=== PATIENT | male | born 1980 | race Caucasian/White ===

== ENCOUNTER 2017-08-16 16:38 | Emergency (ER) | payer OTHER ==
[~2017-08-16] VITALS: Ht 172.7 cm; Wt 87.5 kg
[2017-08-16] VITALS (8 sets, daily range): BP systolic 136–151; BP diastolic 80–96; PULSE 45–65; RESP 16–18; TEMP 98; O2SAT 98–99
[~2017-08-16 16:38] MED LIST: ASPI81 PO; ATOR20TA42 PO; CARV12.5 PO; LEVO.025 PO; LISI20 PO; NITR.4 SL; PRAS10 PO; TRAM50 PO
[2017-08-16] MEDS ORDERED: SODIUM CHLORIDE 0.9% FLUSH 10 ML FLUSH IVF PRN (17:15)
[2017-08-16] MEDS ORDERED: LISI10TA3 PO (17:26)
[2017-08-16] MEDS ORDERED: ASPI-516 CHEW (17:26)
[2017-08-16] MEDS ORDERED: ATOR40TA16 PO (17:26)
[2017-08-16 17:29] LABS: BASOPHIL % 0.4 % (0.0-2.0); EOSINOPHIL # 0.1 TH/MM3 (0-0.4); EOSINOPHIL % 1.1 % (0.0-4.0); HEMATOCRIT 42.4 % (39.0-51.0); HEMOGLOBIN 14.4 GM/DL (13.0-17.0); LYMPH % 23.4 % (9.0-44.0); MEAN CELL VOLUME 91.9 FL (80.0-100.0); MEAN CORPUSCULAR HEMOGLOBIN 31.3 PG (27.0-34.0); MEAN PLATELET VOLUME 9.4 FL (7.0-11.0); MONO % 6.8 % (0.0-8.0); MONOCYTE # 0.6 TH/MM3 (0-0.9); NEUT % 68.3 % (16.0-70.0); PLATELET COUNT 207 TH/MM3 (150-450); RED BLOOD COUNT 4.61 MIL/MM3 (4.50-5.90); RED CELL DISTRIBUTION WIDTH 13.1 % (11.6-17.2); WHITE BLOOD COUNT 8.7 TH/MM3 (4.0-11.0)
[2017-08-16 17:31] LABS: CHLORIDE 110 MEQ/L (98-107); SODIUM (NA) 140 MEQ/L (136-145)
[2017-08-16 17:36] LABS: BICARBONATE 21.1 MEQ/L (21.0-32.0); BLOOD UREA NITROGEN 19 MG/DL (7-18); CALCIUM 8.4 MG/DL (8.5-10.1); GLUCOSE,RANDOM 92 MG/DL (74-106)
[2017-08-16 17:39] LABS: ALT (GPT) 16 U/L (12-78); AST (GOT) 16 U/L (15-37)
--- NOTE | 2017-08-16 17:39 | PD ---
HPI Chief Complaint: Chest Pain Time Seen by Provider: 16:52 Travel History International Travel<30 days: No Contact w/Intl Traveler<30days: No Traveled to known affect area: No History of Present Illness HPI Patient is a 37-year-old male, with history of NSTEMI in the past with 2 cardiac stents, who comes in complaining of chest pain. He says that the pain came on while he was playing basketball today in his left chest. He says that it has been coming and going since then, mostly when he moves. He also says he "just doesn't feel well." He says yesterday he was carrying something heavy. When his arrived, she says he has been complaining of this pain for weeks. He is unable to qualify what "not feeling well" means. He denies shortness of breath, nausea, or diaphoresis. He tried taking a Nitro with no relief. He took 2 full aspirins at home. He went to his telecommunications facility examiner's office, Dr. Fisher, who did an ECG and told him it looked ok. He told him to come to the ED if his pain persisted. Patient also reports a lot of anxiety over his symptoms. Severity is mild to moderate. PFSH Past Medical History Cardiac Catheterization: Yes Cardiovascular Problems: Yes (SD) High Cholesterol: Yes (STATIN) Coronary Artery Disease: Yes (hx of) Diabetes: Yes Patient Takes Glucophage: No Diminished Hearing: No Hypertension: Yes Myocardial Infarction: Yes Thyroid Disease: Yes Tetanus Vaccination: > 5 Years Influenza Vaccination: No ?: Not Past Surgical History Cardiac Surgery: Yes (2 STENTS) Coronary Stent: Yes (X 2 ON 04/27/14) Tonsillectomy: Yes Other Surgery: Yes (HERNIA REPAIR) Social History Alcohol Use: Yes (occ) Tobacco Use: No Substance Use: No (past hx of marijuana) Allergies-Medications (Allergen,Severity, Reaction): Coded Allergies: morphine (Unverified Allergy, Severe, NAUSEA, 10/26/16) acetaminophen (Unverified Allergy, Mild, Nausea/Vomiting, 10/26/16) hydrocodone (Unverified Allergy, Mild, Nausea/Vomiting, 10/26/16) Reported Meds & Prescriptions Reported Meds & Active Scripts Active Reported Atorvastatin (Atorvastatin Calcium) 40 Mg Tab 40 Mg PO HS Lisinopril 10 Mg Tab 10 Mg PO DAILY Aspirin 81 Mg Chew 81 Mg CHEW DAILY Review of Systems Except as stated in HPI: all other systems reviewed are Neg General / Constitutional: No: Fever, Chills HENT: No: Headaches, Lightheadedness Cardiovascular: Positive: Chest Pain or Discomfort Respiratory: No: Shortness of Breath Gastrointestinal: No: Nausea, Vomiting Musculoskeletal: No: Myalgias Skin: No Rash, No Change in Pigmentation Neurologic: No: Weakness, Dizziness Physical Exam Narrative GENERAL: Awake and alert, in no acute distress. SKIN: Focused skin assessment warm/dry. No wounds or signs of infection. HEAD: Atraumatic. Normocephalic. EYES: Pupils equal and round. No scleral icterus. ENT: Mucous membranes pink and moist. NECK: Trachea midline. No JVD. CARDIOVASCULAR: Regular rate and rhythm. No murmur appreciated. Left chest wall tenderness on palpation. RESPIRATORY: No accessory muscle use. Clear to auscultation. Breath sounds equal bilaterally. GASTROINTESTINAL: Abdomen soft, non-tender, nondistended. Hepatic and splenic margins not palpable. MUSCULOSKELETAL: No obvious deformities. No clubbing. No cyanosis. No edema. NEUROLOGICAL: Awake and alert. No obvious cranial nerve deficits. Motor grossly within normal limits. Normal speech. PSYCHIATRIC: Appropriate mood and affect; insight and judgment normal. Data Data Last Documented VS Vital Signs Date Time Temp Pulse Resp B/P (MAP) Pulse Ox O2 Delivery O2 Flow Rate FiO2 08/16/17 20:40 54 16 143/94 (110) 98 Room Air 08/16/17 17:21 2.00 08/16/17 16:45 98.0 Orders Orders Ckmb (Isoenzyme) Profile (08/16/17 17:13) Complete Blood Count With Diff (08/16/17 17:13) Comprehensive Metabolic Panel (08/16/17 17:13) Prothrombin Time / Inr (Pt) (08/16/17 17:13) Act Partial Throm Time (Ptt) (08/16/17 17:13) Troponin I (08/16/17 17:13) Chest, Single Ap (08/16/17 17:13) Ecg Monitoring (08/16/17 17:13) Bilateral Bp Monitoring (08/16/17 17:13) Iv Access Insert/Monitor (08/16/17 17:13) Oximetry (08/16/17 17:13) Oxygen Administration (08/16/17 17:13) Sodium Chloride 0.9% Flush (Ns Flush) (08/16/17 17:15) CKMB (08/16/17 16:50) CKMB% (08/16/17 16:50) Ketorolac Inj (Toradol Inj) (08/16/17 18:45) Troponin I (08/16/17 20:32) Electrocardiogram (08/16/17 ) Labs Laboratory Tests Test 08/16/17 16:50 08/16/17 20:40 White Blood Count 8.7 TH/MM3 Red Blood Count 4.61 MIL/MM3 Hemoglobin 14.4 GM/DL Hematocrit 42.4 % Mean Corpuscular Volume 91.9 FL Mean Corpuscular Hemoglobin 31.3 PG Mean Corpuscular Hemoglobin Concent 34.0 % Red Cell Distribution Width 13.1 % Platelet Count 207 TH/MM3 Mean Platelet Volume 9.4 FL Neutrophils (%) (Auto) 68.3 % Lymphocytes (%) (Auto) 23.4 % Monocytes (%) (Auto) 6.8 % Eosinophils (%) (Auto) 1.1 % Basophils (%) (Auto) 0.4 % Neutrophils # (Auto) 6.0 TH/MM3 Lymphocytes # (Auto) 2.0 TH/MM3 Monocytes # (Auto) 0.6 TH/MM3 Eosinophils # (Auto) 0.1 TH/MM3 Basophils # (Auto) 0.0 TH/MM3 CBC Comment DIFF FINAL Differential Comment Prothrombin Time 11.0 SEC Prothromb Time International Ratio 1.1 RATIO Activated Partial Thromboplast Time 25.1 SEC Blood Urea Nitrogen 19 MG/DL Creatinine 1.10 MG/DL Random Glucose 92 MG/DL Total Protein 6.8 GM/DL Albumin 4.0 GM/DL Calcium Level 8.4 MG/DL Alkaline Phosphatase 61 U/L Aspartate Amino Transf (AST/SGOT) 16 U/L Alanine Aminotransferase (ALT/SGPT) 16 U/L Total Bilirubin 0.5 MG/DL Sodium Level 140 MEQ/L Potassium Level 4.0 MEQ/L Chloride Level 110 MEQ/L Carbon Dioxide Level 21.1 MEQ/L Anion Gap 9 MEQ/L Estimat Glomerular Filtration Rate 75 ML/MIN Total Creatine Kinase 142 U/L Creatine Kinase MB 1.3 NG/ML Troponin I LESS THAN 0.02 NG/ML LESS THAN 0.02 NG/ML [facility] Medical Decision Making Medical Screen Exam Complete: Yes Emergency Medical Condition: Yes Medical Record Reviewed: Yes Interpretation(s) ECG shows sinus bradycardia at a rate of 57, early repolarization Differential Diagnosis Costochondritis versus muscle strain versus ACS (unlikely) Narrative Course Patient is a 37-year-old male who comes in complaining of chest pain. Originally, he said it started this morning, then he says that he has had it for a few weeks now. Patient is very anxious about the pain. IV established, labs sent. Labs show no acute abnormalities, troponin is negative. Patient follows with Dr. Gomez per cardiology. Dr. Gomez suggests getting to troponins 4 hours apart as well as repeating the ECG, and if these are negative, he will follow-up in the office tomorrow. Repeat ECG and troponin are negative for STEMI. Troponin is less than 0.02. Patient reassured. He is advised to follow-up with his telecommunications facility examiner tomorrow as planned. Advised return anytime for any worsening symptoms. Last 24 hours Impressions Chest X-Ray 08/16/17 [id number] Signed Impressions: CONCLUSION: Negative examination. Diagnosis Primary Impression: Chest pain Qualified Codes: R07.9 - Chest pain, unspecified Patient Instructions: Chest Pain (ED), General Instructions Additional Instructions: Follow-up with your telecommunications facility examiner tomorrow as planned. Return anytime for any worsening symptoms. Disposition: 01 DISCHARGE HOME Condition: Stable Micki Robbins MD Aug 16, 2017 17:39
[2017-08-16 17:40] LABS: GLOMERULAR FILTRATION RATE 75 ML/MIN (>89)
[2017-08-16 17:41] LABS: TOTAL BILIRUBIN ADULT 0.5 MG/DL (0.2-1.0); TOTAL PROTEIN 6.8 GM/DL (6.4-8.2)
[2017-08-16 17:42] LABS: ALKALINE PHOSPHATASE 61 U/L (45-117)
[2017-08-16 17:44] LABS: TROPONIN I LESS THAN 0.02 NG/ML (0.02-0.05)
[2017-08-16 17:46] LABS: INTERNATIONAL NORMALIZED RATIO 1.1 RATIO
[2017-08-16] MEDS ORDERED: KETOROLAC TROMETHAMINE 30 MG/ML (IVP) VIAL IV PUSH ONE (18:45)
--- NOTE | 2017-08-16 19:53 | RADRPT ---
EXAM DATE: 08/16/2017 5:50 PM EDT AGE/SEX: 37 years / Male INDICATIONS: Left sided chest pain. CLINICAL DATA: This is the patient's initial encounter. Patient reports that signs and symptoms have been present for 2 days and indicates a pain score of 6/10. MEDICAL/SURGICAL HISTORY: None. . 2 cardiac stents. [place] [facility] [place]. . FINDINGS: A single AP view of the chest demonstrates the lungs to be symmetrically aerated without evidence of mass, infiltrate or effusion. The cardiomediastinal contours are unremarkable. Osseous structures a re intact. CONCLUSION: Negative examination. Electronically signed by: Terry Rodriguez MD 08/16/2017 7:51 PM EDT
--- NOTE | 2017-08-17 19:06 | EKG ---
Date Performed: 08/16/2017 Time Performed: 21:02:07 PTAGE: 37 years EKG: SINUS BRADYCARDIA EARLY REPOLARIZATION BORDERLINE ECG PREVIOUS TRACING : 08/16/2017 16.42 Since the previous tracing, no significant change noted DOCTOR: Leonardo Bales Interpretating Date/Time 08/17/2017 19:05:45
--- NOTE | 2017-08-17 19:16 | EKG ---
Date Performed: 08/16/2017 Time Performed: 16:42:40 PTAGE: 37 years EKG: SINUS BRADYCARDIA WITH SINUS ARRHYTHMIA EARLY REPOLARIZATION BORDERLINE ECG PREVIOUS TRACING : 08/27/2014 04.36 Since the previous tracing, no significant change noted DOCTOR: Leonardo Bales Interpretating Date/Time 08/17/2017 19:15:01
== END 2017-08-16 21:54 | disposition home or self-care (01) ==
LOC: PHED 16:38
DX: R07.9 Chest pain, unspecified (principal); R00.1 Bradycardia, unspecified; E78.00 Pure hypercholesterolemia, unspecified; I25.10 Atherosclerotic heart disease of native coronary artery without angina pectoris; E11.9 Type 2 diabetes mellitus without complications; I10 Essential (primary) hypertension; I25.2 Old myocardial infarction; E07.9 Disorder of thyroid, unspecified; Z79.82 Long term (current) use of aspirin
CPT/HCPCS: 71045; 80053; 82550; 82552; 84484; 85025; 85610; 85730; 93005